=== PATIENT | male | born 1995 | race Caucasian/White ===

== ENCOUNTER 2021-04-27 10:58 | Outpatient (REF) | payer OTHER, SELFPAY ==
[2021-04-27 13:56] LABS: Urine Cytology See Pathology rpt
[2021-04-27 14:01] LABS: Glucose Urine UA NEG (NEG); Leukocyte Esterase Urine NEG (NEG); Nitrite Urine NEG (NEG); Specific Gravity - Urine >= 1.030 (1.005-1.025); Urine Blood NEG (NEG); Urine Ketones NEG (NEG); Urine Protein NEG (NEG-TRACE)
[2021-04-27 14:02] LABS: Appearance Urine HAZY; Color Urine YELLOW
== END 2021-04-27 10:59 | disposition home or self-care (01) ==
LOC: HO.HMGCLDS 10:58
PROVIDERS: PCP Nurse Practitioner Family; Visit Provider Nurse Practitioner Family
DX: R31.29 Other microscopic hematuria (principal)
CPT/HCPCS: 81003; 87086; 88112

== ENCOUNTER 2021-05-24 11:17 | Outpatient (REF) | payer OTHER, SELFPAY ==
--- NOTE | ~2021-05-24 | US_ITS ---
EXAMINATION: US RETROPERITONEAL COMPLETE (RENAL) CLINICAL INFORMATION: Microscopic hematuria. COMPARISON: None TECHNIQUE: Real-time imaging of the kidneys and bladder. FINDINGS: RIGHT KIDNEY: 11.5 x 4.0 x 4.7 cm (SAG x AP x TRV). The kidney is normal in size, contour, and echogenicity. Renal cortical thickness is normal. No calculi or focal parenchymal lesions. No hydronephrosis. LEFT KIDNEY: 10.3 x 5.9 x 4.9 cm (SAG x AP x TRV). The kidney is normal in size, contour, and echogenicity. Renal cortical thickness is normal. No calculi or focal parenchymal lesions. No hydronephrosis. BLADDER: Well distended. The bladder wall is normal in thickness. No stone or mass. There is dependent echogenic debris seen in the bladder. Bilateral ureteral jets are demonstrated. Prevoid bladder volume is 148 mL. Postvoid bladder volume is 11 mL. PROSTATE: The prostate gland does not appear enlarged. The prostate gland measures 3 x 2.7 x 3 cm, volume 13 mL. US/US retroperitoneal comp IMPRESSION: Normal renal ultrasound. Echogenic debris in the bladder.
== END 2021-05-24 11:18 | disposition home or self-care (01) ==
LOC: HO.HMGCX 11:17
PROVIDERS: PCP Nurse Practitioner Family; Visit Provider Nurse Practitioner Family
DX: R31.29 Other microscopic hematuria (principal)
CPT/HCPCS: 76770

== ENCOUNTER 2022-02-23 08:25 | Outpatient (REF) | payer OTHER, SELFPAY ==
[2022-02-23 11:35] LABS: MANUAL DIFF FLAG NO
[2022-02-23 11:46] LABS: Basophils Percent Auto 0.7 % (0-2); Eosinophils Absolute Auto 0.2 X10*3/uL (0.0-0.4); Eosinophils Percent Auto 2.6 % (0-4); Hematocrit 39.4 % (42.0-52.0); Hemoglobin 13.2 g/dl (14.0-18.0); Imm Gran Abs Auto 0.01 X10*3/uL (0.00-0.03); Imm Gran Pct Auto 0.2 % (0.0-0.4); Lymphocytes Absolute Auto 2.4 X10*3/uL (1.2-4.9); Lymphocytes Percent Auto 41.5 % (20-40); Mean Corpuscular HGB Conc 33.5 g/dl (31.0-36.0); Mean Corpuscular Hemoglobin 29.9 pg (27.0-33.0); Mean Corpuscular Volume 89.3 fL (80.0-98.0); Mean Platelet Volume 12.6 fL (9.4-12.4); Monocytes Absolute Auto 0.6 X10*3/uL (0.1-1.2); Monocytes Percent Auto 9.6 % (2-11); Neutrophils Absolute Auto 2.6 x10*3/uL (2.0-8.3); Neutrophils Percent Auto 45.4 % (45-73); Platelet Count 156 X10*3/uL (160-400); Red Blood Count 4.41 X10*6/uL (4.60-5.80); Red Cell Distribution Width 12.2 % (11.0-16.0); White Blood Count 5.8 X10*3/uL (4.8-10.8)
[2022-02-23 12:11] LABS: Alanine Aminotransferase 11 U/L (0-40); Albumin Level 4.6 g/dL (3.5-5.0); Alkaline Phosphatase 46 U/L (39-117); Anion Gap 12 (12-20); Aspartate Amino Transferase 14 U/L (5-37); Blood Urea Nitrogen 10 mg/dL (9-16); Calcium 9.4 mg/dL (8.4-10.2); Carbon Dioxide 28 mmol/L (22-29); Chloride 104 mmol/L (96-108); Estimated Glomerular Filt Rate > 60; Glucose Random 97 mg/dL (60-115); Potassium 3.8 mmol/L (3.3-5.1); Sodium 140 mmol/L (135-145)
[2022-02-23 12:12] LABS: TSH reflex Free T4 3.84 uIU/mL (0.32-4.0)
== END 2022-02-23 08:26 | disposition home or self-care (01) ==
LOC: HO.HMGCLDS 08:25
PROVIDERS: PCP Nurse Practitioner Family; Visit Provider Nurse Practitioner Family
DX: R53.83 Other fatigue (principal)
CPT/HCPCS: 36415; 80053; 84443; 85025

== ENCOUNTER 2022-02-25 14:31 | Outpatient (REF) | payer OTHER, SELFPAY ==
[2022-02-25 16:38] LABS: Appearance Urine HAZY; Color Urine DK YELLOW; Glucose Urine UA NEG (NEG); Leukocyte Esterase Urine NEG (NEG); Nitrite Urine NEG (NEG); Specific Gravity - Urine >= 1.030 (1.005-1.025); Urine Blood NEG (NEG); Urine Ketones NEG (NEG); Urine Protein NEG (NEG-TRACE)
== END 2022-02-25 14:32 | disposition home or self-care (01) ==
LOC: HO.HMGCLNP 14:31
PROVIDERS: PCP Nurse Practitioner Family; Visit Provider Nurse Practitioner Family
DX: R53.83 Other fatigue (principal)
CPT/HCPCS: 81003

== ENCOUNTER 2022-03-11 13:43 | Outpatient (REF) | payer OTHER, SELFPAY ==
[2022-03-11 16:25] LABS: MANUAL DIFF FLAG NO
[2022-03-11 16:29] LABS: Basophils Percent Auto 0.6 % (0-2); Eosinophils Absolute Auto 0.1 X10*3/uL (0.0-0.4); Eosinophils Percent Auto 1.1 % (0-4); Hematocrit 37.6 % (42.0-52.0); Hemoglobin 12.7 g/dl (14.0-18.0); Imm Gran Abs Auto 0.01 X10*3/uL (0.00-0.03); Imm Gran Pct Auto 0.2 % (0.0-0.4); Lymphocytes Absolute Auto 1.4 X10*3/uL (1.2-4.9); Lymphocytes Percent Auto 26.1 % (20-40); Mean Corpuscular HGB Conc 33.8 g/dl (31.0-36.0); Mean Corpuscular Hemoglobin 29.5 pg (27.0-33.0); Mean Corpuscular Volume 87.2 fL (80.0-98.0); Monocytes Absolute Auto 0.3 X10*3/uL (0.1-1.2); Neutrophils Absolute Auto 3.5 x10*3/uL (2.0-8.3); Platelet Count 154 X10*3/uL (160-400); Red Blood Count 4.31 X10*6/uL (4.60-5.80); Red Cell Distribution Width 12.1 % (11.0-16.0); White Blood Count 5.3 X10*3/uL (4.8-10.8)
[2022-03-11 16:40] LABS: Iron 84 mcg/dL (45-160); Percent Iron Saturation 32 % (15-50); Total Iron Binding Capacity 265 mcg/dL (228-428); Unsaturated Iron Binding 181 ug/dL
[2022-03-11 17:02] LABS: Ferritin 111 ng/mL (20-250)
[2022-03-11 17:13] LABS: Folate 7.2 ng/mL (> or = 4.0); Vitamin B12 214 pg/mL (200-900)
== END 2022-03-11 13:44 | disposition home or self-care (01) ==
LOC: HO.HMGCLDS 13:43
PROVIDERS: PCP Nurse Practitioner Family; Visit Provider Nurse Practitioner Family
DX: D64.9 Anemia, unspecified (principal)
CPT/HCPCS: 36415; 82607; 82728; 82746; 83540; 85025

== ENCOUNTER 2022-04-11 13:41 | Outpatient (REF) | payer OTHER, SELFPAY ==
[2022-04-11 16:39] LABS: Basophils Percent Auto 0.6 % (0-2); Hemoglobin 13.5 g/dl (14.0-18.0); Imm Gran Abs Auto 0.01 X10*3/uL (0.00-0.03); Imm Gran Pct Auto 0.2 % (0.0-0.4); MANUAL DIFF FLAG SCAN; Mean Corpuscular Hemoglobin 29.7 pg (27.0-33.0); Mean Corpuscular Volume 88.1 fL (80.0-98.0); Red Cell Distribution Width 12.3 % (11.0-16.0); SCAN SMEAR FLAG 1
[2022-04-11 16:41] LABS: Eosinophils Absolute Auto 0.1 X10*3/uL (0.0-0.4); Eosinophils Percent Auto 1.9 % (0-4); Immature Retic Fraction 6.4 % (2.3-13.4); Lymphocytes Absolute Auto 1.7 X10*3/uL (1.2-4.9); Lymphocytes Percent Auto 36.7 % (20-40); Mean Corpuscular HGB Conc 33.8 g/dl (31.0-36.0); Monocytes Absolute Auto 0.4 X10*3/uL (0.1-1.2); Monocytes Percent Auto 8.5 % (2-11); Neutrophils Absolute Auto 2.5 x10*3/uL (2.0-8.3); Neutrophils Percent Auto 52.1 % (45-73); Platelet Count 152 X10*3/uL (160-400); Red Blood Count 4.54 X10*6/uL (4.60-5.80); Retic HGB Equivalent 36.5 pg (30.0-35.0); Reticulocyte Percent 1.1 % (0.5-1.8); White Blood Count 4.7 X10*3/uL (4.8-10.8)
[2022-04-11 16:53] LABS: Alanine Aminotransferase 12 U/L (0-40); Albumin Level 4.5 g/dL (3.5-5.0); Alkaline Phosphatase 45 U/L (39-117); Anion Gap 13 (12-20); Aspartate Amino Transferase 17 U/L (5-37); Bilirubin Total 0.9 mg/dL (0.0-1.0); Blood Urea Nitrogen 12 mg/dL (9-16); Calcium 9.6 mg/dL (8.4-10.2); Carbon Dioxide 29 mmol/L (22-29); Chloride 103 mmol/L (96-108); Estimated Glomerular Filt Rate > 60; Glucose Random 134 mg/dL (60-115); Iron 133 mcg/dL (45-160); Percent Iron Saturation 43 % (15-50); Potassium 4.3 mmol/L (3.3-5.1); Sodium 141 mmol/L (135-145); Total Iron Binding Capacity 306 mcg/dL (228-428); Total Protein 7.1 g/dL (6.5-8.0); Unsaturated Iron Binding 173 ug/dL
[2022-04-11 17:03] LABS: PLT ABN DIST 1
[2022-04-11 17:13] LABS: Ferritin 94 ng/mL (20-250)
[2022-04-11 17:27] LABS: Vitamin B12 193 pg/mL (200-900)
[2022-04-11 17:33] LABS: SLIDE REVIEW VERIFIED
== END 2022-04-11 13:42 | disposition home or self-care (01) ==
LOC: HO.HMGCLDS 13:41
PROVIDERS: PCP Nurse Practitioner Family; Visit Provider Nurse Practitioner Family
DX: D64.9 Anemia, unspecified (principal)
CPT/HCPCS: 36415; 80053; 82607; 82728; 82746; 83540; 85025; 85045

== ENCOUNTER 2022-04-14 10:37 | Outpatient (REF) | payer OTHER, SELFPAY ==
[2022-04-15 07:39] LABS: FIT1 NEGATIVE (NEGATIVE)
[2022-04-15 07:40] LABS: FIT Int Ctl YES
== END 2022-04-14 10:38 | disposition home or self-care (01) ==
LOC: HO.HMGCLDS 10:37
PROVIDERS: PCP Nurse Practitioner Family; Visit Provider Nurse Practitioner Family
DX: D64.9 Anemia, unspecified (principal)
CPT/HCPCS: 82274

== ENCOUNTER 2023-03-20 11:47 | Outpatient (REF) | payer OTHER, SELFPAY ==
[2023-03-20 13:42] LABS: MANUAL DIFF FLAG NO
[2023-03-20 13:58] LABS: Basophils Percent Auto 0.8 % (0-2); Eosinophils Absolute Auto 0.1 X10*3/uL (0.0-0.4); Imm Gran Abs Auto 0.01 X10*3/uL (0.00-0.03); Imm Gran Pct Auto 0.3 % (0.0-0.4); Lymphocytes Absolute Auto 1.5 X10*3/uL (1.2-4.9); Lymphocytes Percent Auto 38.4 % (20-40); Mean Corpuscular HGB Conc 33.3 g/dl (31.0-36.0); Mean Corpuscular Hemoglobin 29.4 pg (27.0-33.0); Mean Corpuscular Volume 88.1 fL (80.0-98.0); Monocytes Absolute Auto 0.3 X10*3/uL (0.1-1.2); Neutrophils Percent Auto 50.5 % (45-73); Platelet Count 161 X10*3/uL (160-400); Red Blood Count 4.77 X10*6/uL (4.60-5.80)
[2023-03-20 14:51] LABS: Alanine Aminotransferase 11 U/L (0-40); Albumin Level 4.5 g/dL (3.5-5.0); Alkaline Phosphatase 46 U/L (39-117); Anion Gap 18 (12-20); Aspartate Amino Transferase 15 U/L (5-37); Bilirubin Total 0.5 mg/dL (0.0-1.0); Blood Urea Nitrogen 6 mg/dL (9-16); Calcium 10.1 mg/dL (8.4-10.2); Carbon Dioxide 23 mmol/L (22-29); Chloride 106 mmol/L (96-108); Cholesterol 191 mg/dL; Estimated Glomerular Filt Rate > 60; Glucose Fasting 89 mg/dL (60-99); HDL Cholesterol 58 mg/dL; LDL Cholesterol Calculated 124 mg/dl; Potassium 4.1 mmol/L (3.3-5.1); Sodium 143 mmol/L (135-145); TSH reflex Free T4 2.98 uIU/mL (0.32-4.0); Total Protein 7.4 g/dL (6.5-8.0); Triglycerides 45 mg/dL
[2023-03-20 15:05] LABS: Folate 7.7 ng/mL (> or = 4.0); Vitamin B12 304 pg/mL (200-900)
[2023-03-23 17:14] LABS: Methylmalonic Acid 122 nmol/L (87-318)
[2023-03-24 20:38] LABS: Intrinsic Factor Antibodies Negative (Negative)
[2023-03-27 10:29] LABS: Parietal Cell Antibody <=20.0 Unit (<=20.0)
== END 2023-03-20 11:48 | disposition home or self-care (01) ==
LOC: HO.HMGCLDS 11:47
PROVIDERS: PCP Nurse Practitioner Family; Visit Provider Nurse Practitioner Family
DX: Z00.00 Encounter for general adult medical examination without abnormal findings (principal); D64.9 Anemia, unspecified
CPT/HCPCS: 36415; 80053; 80061; 82607; 82746; 83516; 83921; 84443; 85025; 86340

== ENCOUNTER → 2023-06-02 15:06 | Outpatient (BNVA) | payer SELFPAY | PROVIDERS: PCP Nurse Practitioner Family ==

== ENCOUNTER 2023-06-28 10:21 | Outpatient (AMB) | payer OTHER, SELFPAY ==
--- NOTE | 2023-06-28 10:31 | A.OFFPC_ITS ---
Vital Signs 06/28/23 10:34 Weight 154 lb BP 112/60 Blood Pressure Location Rt brachial Position Sitting Pulse 72 Pulse Source Pulse Oximeter Pulse Oximetry (%) 97 Oxygen Delivery Method Room Air Intake Visit Reasons: Annual PE Allergies amoxicillin Allergy (Unknown, Verified 06/28/23 10:33) Anaphylaxis penicillin V Allergy (Unknown, Verified 06/28/23 10:33) Anaphylaxis CILLIN ANTIBIOTICS Allergy (Severe, Uncoded 06/28/23 10:33) ANAPHALYXIS Tobacco use date assessed: 06/28/23 Dental Screening Dental Screen Date: 06/28/23 Did you have a dental visit in the last 12 months?: Yes Did you have a dental problem in the last 6 months where you did not have access to dental care?: No Was dental information given to patient?: Patient has dentist HPI Annual PE HPI Details Pt is here for a PE. Will order labs. Hx of anemia, will order labs. [facility] Medical History Migraine Neural foraminal stenosis of cervical spine Retrolisthesis Eczema Depression Insomnia Surgical History History of cranial surgery Family History Father Pancreatic cancer Mother Substance use disorder Sister No problems noted. Brother No problems noted. Social History Housing: House Alcohol intake: never Patient Tobacco Use Status: Never used Tobacco e-Cigarette/Vaping Use: Never Used Second Hand Smoke Exposure: No service: No Current occupational status: employed Cognitive needs: No Hearing needs: No Vision needs: No Questionnaire Thrive Questionnaire Date Thrive assessed: 06/27/22 AUDIT C Alcohol Use Questionnaire (AUDIT-C) 1. How often do you have a drink containing alcohol?: Never 3. How often do you have six or more drinks on one occasion?: Never Total Score: 0 Score Reviewed/Action Taken: No ERIK-7 AMB Questionnaire ERIK-7 Date ERIK - 7 assessed: 06/27/22 Source: Developed by Drs. Mark Cook, Angie B.W. Abhay Farrell and colleagues, with an educational ping from [employer]. Review of Systems Const Denies chills and Denies fever(s) Eyes Denies blurry vision ENT Denies vertigo, Denies dizziness and Denies sore throat Card Denies chest pain at rest, Denies chest pain with activity, Denies diaphoresis, Denies dyspnea and Denies dyspnea on exertion Resp Denies cough, Denies dyspnea, Denies dyspnea on exertion and Denies wheezing GI Denies abdominal pain, Denies melena, Denies hematochezia, Denies constipation, Denies diarrhea and Denies loose stools Denies hematuria Musc Denies numbness and Denies tingling Skin/Breast Denies lesions Neuro Denies vertigo, Denies dizziness, Denies numbness and Denies tingling Psych Denies anxiety, Denies depression, Denies homicidal ideation, Denies suicidal ideation and Denies other (substance abuse) Aller/Immun Denies wheezing Physical exam (Primary Care) Vital Signs: Last Vital Signs Pulse 72 06/28/23 10:34 BP 112/60 06/28/23 10:34 Pulse Ox 97 06/28/23 10:34 Oxygen Delivery Method Room Air 06/28/23 10:34 Tobacco/Smoking Status: Tobacco use Status Tobacco use date assessed 06/28/23 06/28/23 10:35 Patient Tobacco Use Status Never used Tobacco 06/28/23 10:32 e-Cigarette/Vaping Use Never Used 06/28/23 10:32 Thrive Assessment: Date of Thrive Assessment Date Thrive assessed 06/27/22 06/28/23 10:32 Const General: cooperative Nutritional Appearance: well nourished Orientation/consciousness: patient oriented x3 HENMT Head: Yes normal to inspection, Yes normocephalic and Yes atraumatic Ears: TM's normal bilaterally Eyes General: appearance normal, both eyes and all related structures Alignment and Position: alignment normal and position normal Neck Neck: Yes normal visual inspection and Yes no lymphadenopathy Thyroid: Thyroid normal Resp Effort & Inspection: normal respiratory effort Auscultation: clear to auscultation bilaterally Cardio Rate: regular rate Rhythm: regular rhythm Heart sounds: S1 normal heart sound present, S2 normal heart sound present and no murmurs GI Palpation (GI): Soft to palpation and nontender Auscultation: normal bowel sounds Skin Rashes: no rashes Neuro General: patient oriented x3, moves all extremities, no focal motor deficits and deep tendon reflexes 2+ bilaterally Romberg Test: Negative Psych Appearance: grossly normal Mental Status: mental status grossly normal Speech and movement: Normal speech and movement present Affect: normal affect Attitude: cooperative Thought process: Normal thought process present Thought content: Normal thought content present Insight: Good insight present (Psych) Judgement: Good judgement present (Psych) Assessment and Plan Assessment & Plan (1) Physical exam: Code(s): Z00.00 - Encounter for general adult medical examination without abnormal findings Plan: Labs ordered (2) Anemia: Code(s): D64.9 - Anemia, unspecified Plan: Labs ordered Plan The patient agreed to the use of a medical insurance collector for this encounter. Scribed for HEIDE Patterson by Liz Sanchez medical insurance collector, on 06/28/2023 at 10:55 EST. Orders: Orders Complete Blood Count Auto Diff Today Z00.00 - Encounter for general adult medical examination without abnormal findings Comprehensive [place]. Panel Fast Today Z00.00 - Encounter for general adult medical examination without abnormal findings TSH reflex Free T4 Today Z00.00 - Encounter for general adult medical examination without abnormal findings UA CC w/rflx Micro + Cult Today Z00.00 - Encounter for general adult medical examination without abnormal findings Vitamin B12 and Folate Today D64.9 - Anemia, unspecified Lipid Panel Today Z00.00 - Encounter for general adult medical examination without abnormal findings Ferritin Today D64.9 - Anemia, unspecified IRON PROFILE Today D64.9 - Anemia, unspecified Coding Level of Care Code Est Pt Prev Care 18-39y(54887) Diagnoses Physical exam Z00.00 Anemia D64.9
[2023-06-28 10:34] VITALS: BP 112/60; PULSE 72; O2SAT 97
== END 2023-06-28 11:10 | disposition home or self-care (01) ==
PROVIDERS: Visit Provider Nurse Practitioner Family
DX: Z00.00 Encounter for general adult medical examination without abnormal findings (principal); D64.9 Anemia, unspecified
CPT/HCPCS: 99395

== ENCOUNTER 2024-04-08 07:56 | Outpatient (AMB) | payer OTHER, SELFPAY ==
--- NOTE | 2024-04-08 07:48 | A.OFFPC_ITS ---
Intake Visit Reasons: Stomach problems Allergies amoxicillin Allergy (Unknown, Verified 06/28/23 10:33) Anaphylaxis penicillin V Allergy (Unknown, Verified 06/28/23 10:33) Anaphylaxis CILLIN ANTIBIOTICS Allergy (Severe, Uncoded 06/28/23 10:33) ANAPHALYXIS Tobacco use date assessed: 06/28/23 Dental Screening Dental Screen Date: 06/28/23 HPI Stomach problems HPI Details Pt c/o abdominal pain. He reports discomfort to his lower middle abdomen. Pt believes this could be related to his diet. He has started to change his diet and noticed improvement with his ABD discomfort. Will continue to monitor. Denies fever, chills,blood in stool, fevers/chills, and dizziness. [facility] Medical History Migraine Neural foraminal stenosis of cervical spine Retrolisthesis Eczema Depression Insomnia Surgical History History of cranial surgery Family History Father Pancreatic cancer Mother Substance use disorder Sister No problems noted. Brother No problems noted. Social History Housing: House Alcohol intake: never Patient Tobacco Use Status: Never used Tobacco e-Cigarette/Vaping Use: Never Used Second Hand Smoke Exposure: No service: No Current occupational status: employed Cognitive needs: No Hearing needs: No Vision needs: No Questionnaire Thrive Questionnaire Date Thrive assessed: 06/27/22 ERIK-7 AMB Questionnaire ERIK-7 Date ERIK - 7 assessed: 06/27/22 Source: Developed by Drs. Mark Cook, Angie Farrell, Abhay Alvarez and colleagues, with an educational ping from [employer]. Review of Systems Const Reports as per HPI Physical exam (Primary Care) Tobacco/Smoking Status: Tobacco use Status Tobacco use date assessed 06/28/23 06/28/23 10:35 Patient Tobacco Use Status Never used Tobacco 06/28/23 10:32 e-Cigarette/Vaping Use Never Used 06/28/23 10:32 Thrive Assessment: Date of Thrive Assessment Date Thrive assessed 06/27/22 06/28/23 10:32 Const General: cooperative Orientation/consciousness: patient oriented x3 Neuro General: patient oriented x3 Psych Appearance: grossly normal Mental Status: mental status grossly normal Speech and movement: Clear speech present Affect: normal affect Attitude: cooperative Thought process: Normal thought process present Thought content: Normal thought content present Insight: Good insight present (Psych) Judgement: Good judgement present (Psych) Telehealth Telehealth Telehealth Platform: [employer] Location of provider rendering services: practice address Location of patient: address on file Patient Identification confirmed using: Name, : Yes Telehealth method: video Patient verbally consented to treatment: Yes Patient verbally consented to billing insurance company: Yes Patient informed of any privacy concerns related to visit: Yes Minutes spent on Phone/Video with Pt.: 10 Assessment and Plan Assessment & Plan (1) Stomach pain: Code(s): R10.9 - Unspecified abdominal pain Plan: pt reports switching his diet, which has helped. He reports eating less fast food, eating more veggies/fruits. Plan The patient agreed to the use of a clinical medical assistant for this encounter. Scribed for SILVINA Patterson-YARY by Liz Sanchez clinical medical assistant, on 04/08/2024 at 07:50 EST. Coding Level of Care Code Tele Est Pt Level 3 (81341) Diagnoses Stomach pain R10.9
== END 2024-04-08 08:10 | disposition home or self-care (01) ==
LOC: HO.HMGC 07:56
PROVIDERS: PCP Nurse Practitioner Family; Visit Provider Nurse Practitioner Family
DX: R10.9 Unspecified abdominal pain (principal)
CPT/HCPCS: 99213

== ENCOUNTER 2024-06-10 11:17 | Outpatient (AMB) | payer OTHER, SELFPAY ==
[2024-06-10 12:31] VITALS: BP 120/68; PULSE 98; TEMP 36.7; O2SAT 98; BMI 26.3
--- NOTE | 2024-06-10 12:31 | AM.OFFWIN_ITS ---
Intake Vital Signs 06/10/24 12:31 Height 5 ft 8 in Weight 173 lb BMI 26.3 BP 120/68 Blood Pressure Location Rt brachial Position Sitting Pulse 98 Pulse Source Pulse Oximeter Temp 98.1 F Temp Source Oral Pulse Oximetry (%) 98 Oxygen Delivery Method Room Air Intake Visit Reasons: EP Stomach pain, rt wrist pain [phone] Intake Note: Pt is here today for RT wrist pain and stomach pain. Pt states stomach pain started few weeks ago Patient Tobacco Use Status: Never used Tobacco Allergies amoxicillin Allergy (Unknown, Verified 06/10/24 12:31) Anaphylaxis penicillin V Allergy (Unknown, Verified 06/10/24 12:31) Anaphylaxis CILLIN ANTIBIOTICS Allergy (Severe, Uncoded 06/28/23 10:33) ANAPHALYXIS Do you need a note to return to daycare/school/sports/work: Yes HPI EP Stomach pain, rt wrist pain [phone] HPI Details This note is constructed using voice recognition software. While every effort has been made to ensure accuracy, furnace mechanic errors may have been included. The patient is a 28 year old male who presents to the clinic today with stomach complaints and right wrist pain for the past several months. He notes that his stomach hurts intermittently, feeling like gas pressure, and resolved when he moves his bowels. His bowels do not move regularly, and he tends to have hard stools. He reports that his stools are normal when he works 1st shift, however he has been working 2nd shift for quite some time, was transitioned to 1st shift several months ago, and then recently back after the 2nd shift employer had an accident. When he is working 2nd shift he is not hydrating well, only eating 1 meal per day, and subsequently has increased di scomfort, and harder stools. He notes that when he moves his bowels when he is on 2nd shift he tends to still feel like he has more bowel movement to have. He denies any nausea, vomiting, blood. He also notes that his right wrist x2 her on extension, this has been longstanding. He has had no specific injury. 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 He denies numbness and tingling, reduced strength. [facility] Medical History Migraine Neural foraminal stenosis of cervical spine Retrolisthesis Eczema Depression Insomnia Surgical History History of cranial surgery Family History Father Pancreatic cancer Mother Substance use disorder Sister No problems noted. Brother No problems noted. Social History Housing: House Alcohol intake: never Patient Tobacco Use Status: Never used Tobacco e-Cigarette/Vaping Use: Never Used Second Hand Smoke Exposure: No service: No Current occupational status: employed Cognitive needs: No Hearing needs: No Vision needs: No Review of Systems Const All systems reviewed & are unremarkable except as noted in HPI and below Physical Exam Vital Signs: Last Vital Signs Temp 98.1 F 06/10/24 12:31 Pulse 98 06/10/24 12:31 BP 120/68 06/10/24 12:31 Pulse Ox 98 06/10/24 12:31 Oxygen Delivery Method Room Air 06/10/24 12:31 BMI result Body Mass Index 26.3 Const General: cooperative, healthy appearing, comfortable, no acute distress and well developed Orientation/consciousness: patient oriented x3 Limitations: no limitations Neck Neck: Yes normal visual inspection and Yes full ROM Resp Effort & Inspection: normal respiratory effort and able to speak in complete sentences Auscultation: clear to auscultation bilaterally Cardio Rate: regular rate Rhythm: regular rhythm Heart sounds: normal S1 and S2 GI Inspection: Yes normal to inspection Palpation (GI): Soft to palpation and nontender Skin General skin exam: no rashes or lesions noted Neuro General: patient oriented x3 Extrem Other: Tenderness and dorsal right wrist on extension, medially. Full range of motion, lathe hand strength 5/5 and equal. Distal neurovascular exam intact. General: Yes normal to inspection Assessment & Plan Assessment & Plan (1) Constipation: Code(s): K59.00 - Constipation, unspecified Qualifiers: Constipation type: unspecified constipation type Qualified Code(s): K59.00 - Constipation, unspecified Plan: Advised to increase hydration, and use of [id number] or dietary fiber supplementation. Advised follow up with PCP with worsening or failure to resolve. (2) Right wrist tendinitis: Code(s): M77.8 - Other enthesopathies, not elsewhere classified Plan: Supportive measures encouraged and reviewed. Advised NSAIDs, compression, rest, ice, elevation. Advised follow up with worsening or failure to resolve. Given lack of injury, imaging deferred at this time. Plan See above for full details and plan. Coding Level of Care Code Est Pt Level 3 (69528) Diagnoses Constipation, unspecified constipation type K59.00 Constipation type: unspecified constipation type Right wrist tendinitis M77.8
== END 2024-06-10 13:20 | disposition home or self-care (01) ==
PROVIDERS: PCP Nurse Practitioner Family; Visit Provider Registered Nurse
DX: K59.00 Constipation, unspecified (principal); M77.8 Other enthesopathies, not elsewhere classified

== ENCOUNTER → 2024-06-10 11:17 | Outpatient (BNVA) | payer OTHER, SELFPAY | PROVIDERS: PCP Nurse Practitioner Family; Visit Provider Registered Nurse ==

== ENCOUNTER 2024-07-02 07:34 | Outpatient (AMB) | payer OTHER, SELFPAY ==
--- NOTE | 2024-07-02 07:19 | MHC.PC.OV ---
Intake Visit Reasons: stomache pain Allergies amoxicillin Allergy (Unknown, Verified 06/10/24 12:31) Anaphylaxis penicillin V Allergy (Unknown, Verified 06/10/24 12:31) Anaphylaxis CILLIN ANTIBIOTICS Allergy (Severe, Uncoded 06/28/23 10:33) ANAPHALYXIS Tobacco use date assessed: 06/28/23 Dental Screening Dental Screen Date: 06/28/23 HPI stomache pain HPI Details Pt reports that his stomach issues have improved. He believes his symptoms were due to stress surrounding his job and relationship. Denies fever, chills, and N/V/D. Pt is planning to switch medical providers due to not being able to be seen as frequently as he needs. I wish him the best of luck with his new provider. [facility] Medical History Migraine Neural foraminal stenosis of cervical spine Retrolisthesis Eczema Depression Insomnia Surgical History History of cranial surgery Family History Father Pancreatic cancer Mother Substance use disorder Sister No problems noted. Brother No problems noted. Social History Housing: House Alcohol intake: never Patient Tobacco Use Status: Never used Tobacco e-Cigarette/Vaping Use: Never Used Second Hand Smoke Exposure: No service: No Current occupational status: employed Cognitive needs: No Hearing needs: No Vision needs: No Questionnaire Thrive Questionnaire Date Thrive assessed: 06/27/22 ERIK-7 AMB Questionnaire ERIK-7 Date ERIK - 7 assessed: 06/27/22 Source: Developed by Drs. Mark Cook, Angie Farrell, Abhay Alvarez and colleagues, with an educational ping from [employer]. Review of Systems Const Reports as per HPI Physical exam (Primary Care) Tobacco/Smoking Status: Tobacco use Status Tobacco use date assessed 06/28/23 07/02/24 07:21 Patient Tobacco Use Status Never used Tobacco 07/02/24 07:21 e-Cigarette/Vaping Use Never Used 07/02/24 07:21 Thrive Assessment: Date of Thrive Assessment Date Thrive assessed 06/27/22 07/02/24 07:21 Const General: cooperative Orientation/consciousness: patient oriented x3 Neuro General: patient oriented x3 Psych Appearance: grossly normal Mental Status: mental status grossly normal Speech and movement: Clear speech present Affect: normal affect Attitude: cooperative Thought process: Normal thought process present Thought content: Normal thought content present Insight: Good insight present (Psych) Judgement: Good judgement present (Psych) Telehealth Telehealth Telehealth Platform: [facility] Location of provider rendering services: practice address Location of patient: address on file Patient Identification confirmed using: Name, : Yes Telehealth method: video Patient verbally consented to treatment: Yes Patient verbally consented to billing insurance company: Yes Patient informed of any privacy concerns related to visit: Yes Minutes spent on Phone/Video with Pt.: 10 Coding Level of Care Code Tele Est Pt Level 3 (24212) Diagnoses Stomach pain R10.9 Assessment & Plan Assessment & Plan (1) Stomach pain: Code(s): R10.9 - Unspecified abdominal pain Category: Medical Plan: Symptoms have improved Plan The patient agreed to the use of a family practice medical doctor for this encounter. Scribed for SILVINA Patterson-BC by Liz Sanchez family practice medical doctor, on 07/02/2024 at 07:20 EST. Orders: Orders Complete Blood Count Auto Diff Today R10.9 - Unspecified abdominal pain Comprehensive [place]. Panel Fast Today R10.9 - Unspecified abdominal pain TSH reflex Free T4 Today R10.9 - Unspecified abdominal pain UA CC w/rflx Micro + Cult Today R10.9 - Unspecified abdominal pain Lipid Panel Today R10.9 - Unspecified abdominal pain
== END 2024-07-02 07:44 | disposition home or self-care (01) ==
PROVIDERS: PCP Nurse Practitioner Family; Visit Provider Nurse Practitioner Family
DX: R10.9 Unspecified abdominal pain (principal)